=== PATIENT | male | born 1970 | race Caucasian/White ===

== ENCOUNTER 2018-03-04 13:24 | Observation (INO) | payer MEDICAID, MEDICARE ==
[2018-03-04] MEDS ORDERED: NITROGLYCERIN 2% OINTMENT 1 GM PACKET TP ONE (14:15)
[2018-03-04 14:43] LABS: ABSOLUTE BASOPHILS # (AUTO) 0.1 10^3/uL (0.0-0.2); ABSOLUTE EOSINOPHILS # (AUTO) 0.3 10^3/uL (0.0-0.6); ABSOLUTE LYMPHOCYTES (AUTO) 2.6 10^3/uL (0.5-4.7); ABSOLUTE NEUT (AUTO) 6.5 10^3/uL (1.7-8.2); BASOPHILS % (AUTO) 0.8 % (0-2); EOSINOPHILS % (AUTO) 3.3 % (0-6); HEMATOCRIT 44.1 % (37.9-51.0); HEMOGLOBIN 15.1 g/dL (13.5-17.0); LYMPHOCYTES % (AUTO) 24.9 % (13-45); MEAN CORPUSCULAR HEMOGLOBIN 32.2 pg (27.0-33.4); MEAN CORPUSCULAR HGB CONC 34.3 g/dL (32.0-36.0); MEAN CORPUSCULAR VOLUME 94 fl (80-97); MONOCYTES % (AUTO) 9.2 % (3-13); PLATELET COUNT 275 10^3/uL (150-450); RED CELL DISTRIBUTION WIDTH 13.8 % (11.5-14.0); SEGMENTED NEUTROPHILS % (AUTO) 61.8 % (42-78); TOTAL CELLS COUNTED % (AUTO) 100 %; WHITE BLOOD COUNT 10.5 10^3/uL (4.0-10.5)
--- NOTE | 2018-03-04 14:48 | RADIOLOGY REPORT (SQ) ---
EXAM DESCRIPTION: CHEST SINGLE VIEW COMPLETED DATE/TIME: 03/04/2018 2:33 pm REASON FOR STUDY: chest pain COMPARISON: None. EXAM PARAMETERS: NUMBER OF VIEWS: One view. TECHNIQUE: Single frontal radiographic view of the chest acquired. RADIATION DOSE: NA LIMITATIONS: None. FINDINGS: LUNGS AND PLEURA: No opacities, masses or pneumothorax. No pleural effusion. MEDIASTINUM AND HILAR STRUCTURES: No masses. Contour normal. HEART AND VASCULAR STRUCTURES: Heart normal in size. Normal vasculature. BONES: No acute findings. HARDWARE: None in the chest. OTHER: No other significant finding. IMPRESSION: NO ACUTE RADIOGRAPHIC FINDING IN THE CHEST. TECHNICAL DOCUMENTATION: JOB ID: [id number] [employer]- All Rights Reserved Reading location - IP/workstation name: [email or web address]
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
[2018-03-04 16:39] LABS: ALANINE AMINOTRANSFERASE 37 U/L (21-72); ALBUMIN 3.7 g/dL (3.5-5.0); ALKALINE PHOSPHATASE 79 U/L (38-126); ANION GAP 12 (5-19); ASPARTATE AMINO TRANSFERASE 19 U/L (17-59); BILIRUBIN,DIRECT 0.2 mg/dL (0.0-0.4); BILIRUBIN,TOTAL 0.5 mg/dL (0.2-1.3); BLOOD UREA NITROGEN 15 mg/dL (7-20); CARBON DIOXIDE 25 mmol/L (22-30); CHLORIDE 105 mmol/L (98-107); GLUCOSE 106 mg/dL (75-110); POTASSIUM 3.8 mmol/L (3.6-5.0); SODIUM 141.6 mmol/L (137-145); TOTAL PROTEIN 6.4 g/dL (6.3-8.2)
[2018-03-04] MEDS ORDERED: ACETAMINOPHEN 325 MG TABLET PO PRN (18:36)
--- NOTE | 2018-03-04 18:44 | PDOC H&P ---
History of Present Illness Admission Date/PCP: 03/04/18 17:38 Patient complains of: Chest Pain History of Present Illness: JOYCE LAURA is a 47 year old male Patient presents to the emergency room with complaints of chest pain. Please note patient was very rude and uncooperative and the extent of my interview with him was limited. Review of chart states that he has a history of coronary artery disease and 9 prior stents with the last one being one year ago. Is currently chest pain-free Past Medical History Cardiac Medical History: Reports: Myocardial Infarction, Hypertension Social History Information Source: [facility] Records Smoking Status: Never Smoker - Advance Directive Resuscitation Status: Full Code Family History Family History: Reviewed & Not Pertinent Parental Family History Reviewed: No Children Family History Reviewed: No Sibling(s) Family History Reviewed.: No Medication/Allergy Home Medications: Aspirin [Aspirin EC] 81 mg PO DAILY 03/04/18 Clopidogrel Bisulfate [Plavix 75 mg Tablet] 75 mg PO DAILY 03/04/18 Isosorbide Mononitrate [Isosorbide Mononitrate ER] 30 mg PO DAILY 03/04/18 Lisinopril [Prinivil] 20 mg PO DAILY 03/04/18 Metoprolol Tartrate [Lopressor 25 mg Tablet] 25 mg PO DAILY 03/04/18 Multivit-Mins/Iron/Folic/Lycop [Centrum Men's Tablet] 1 each PO DAILY 03/04/18 Simvastatin [Zocor 20 mg Tablet] 20 mg PO QHS 03/04/18 Allergies/Adverse Reactions: No Known Allergies Allergy (Unverified 03/04/18 18:17) Review of Systems ROS unobtainable: Other - Limited due to patient being very uncooperative and rude Physical Exam Vital Signs: Temp Pulse Resp BP Pulse Ox 98.9 F 23 H 140/89 H 98 03/04/18 13:47 03/04/18 17:31 03/04/18 17:31 03/04/18 17:31 General appearance: PRESENT: no acute distress, well-developed, well-nourished Head exam: PRESENT: atraumatic, normocephalic Eye exam: PRESENT: conjunctiva pink, EOMI, PERRLA. ABSENT: scleral icterus Ear exam: PRESENT: normal external ear exam Mouth exam: PRESENT: moist, tongue midline Neck exam: ABSENT: carotid bruit, JVD, lymphadenopathy, thyromegaly Respiratory exam: PRESENT: clear to auscultation vincenzo. ABSENT: rales, rhonchi, wheezes Cardiovascular exam: PRESENT: RRR. ABSENT: diastolic murmur, rubs, systolic murmur Pulses: PRESENT: normal dorsalis pedis pul Vascular exam: PRESENT: normal capillary refill GI/Abdominal exam: PRESENT: normal bowel sounds, soft. ABSENT: distended, guarding, mass, organolmegaly, rebound, tenderness Rectal exam: PRESENT: deferred Extremities exam: PRESENT: full ROM. ABSENT: calf tenderness, clubbing, pedal edema Neurological exam: PRESENT: alert, awake, oriented to person, oriented to place , oriented to time, oriented to situation, CN II-XII grossly intact. ABSENT: motor sensory deficit Psychiatric exam: PRESENT: appropriate affect, normal mood. ABSENT: homicidal ideation, suicidal ideation Skin exam: PRESENT: dry, intact, warm. ABSENT: cyanosis, rash Results Laboratory Results: 03/04/18 13:35 03/04/18 15:52 MCV 94 fl (80-97) 03/04/18 13:35 MCH 32.2 pg (27.0-33.4) 03/04/18 13:35 MCHC 34.3 g/dL (32.0-36.0) 03/04/18 13:35 RDW 13.8 % (11.5-14.0) 03/04/18 13:35 Seg Neutrophils % 61.8 % (42-78) 03/04/18 13:35 Lymphocytes % 24.9 % (13-45) 03/04/18 13:35 Monocytes % 9.2 % (3-13) 03/04/18 13:35 Eosinophils % 3.3 % (0-6) 03/04/18 13:35 Basophils % 0.8 % (0-2) 03/04/18 13:35 Absolute Neutrophils 6.5 10^3/uL (1.7-8.2) 03/04/18 13:35 Absolute Lymphocytes 2.6 10^3/uL (0.5-4.7) 03/04/18 13:35 Absolute Monocytes 1.0 10^3/uL (0.1-1.4) 03/04/18 13:35 Absolute Eosinophils 0.3 10^3/uL (0.0-0.6) 03/04/18 13:35 Absolute Basophils 0.1 10^3/uL (0.0-0.2) 03/04/18 13:35 Chloride 105 mmol/L (98-107) 03/04/18 15:52 Carbon Dioxide 25 mmol/L (22-30) 03/04/18 15:52 Anion Gap 12 (5-19) 03/04/18 15:52 Est GFR ( Amer) > 60 (>60) 03/04/18 15:52 Est GFR (Non-Af Amer) > 60 (>60) 03/04/18 15:52 Glucose 106 mg/dL (75-110) 03/04/18 15:52 Calcium 9.0 mg/dL (8.4-10.2) 03/04/18 15:52 Total Bilirubin 0.5 mg/dL (0.2-1.3) 03/04/18 15:52 AST 19 U/L (17-59) 03/04/18 15:52 ALT 37 U/L (21-72) 03/04/18 15:52 Alkaline Phosphatase 79 U/L (38-126) 03/04/18 15:52 Total Protein 6.4 g/dL (6.3-8.2) 03/04/18 15:52 Albumin 3.7 g/dL (3.5-5.0) 03/04/18 15:52 03/04/18 03/04/18 13:35 15:52 Troponin I Cancelled < 0.012 Impressions: Chest X-Ray 03/04/18 14:14 IMPRESSION: NO ACUTE RADIOGRAPHIC FINDING IN THE CHEST. Assessment & Plan - Diagnosis (1) Chest pain Qualifiers: Chest pain type: unspecified Qualified Code(s): R07.9 - Chest pain, unspecified - Time Time Spent: 30 to 50 Minutes Medications reviewed and adjusted accordingly: Yes Anticipated discharge: Home Within: within 24 hours - Inpatient Certification Based on my medical assessment, after consideration of the patient's comorbidities, presenting symptoms, or acuity I expect that the services needed warrant INPATIENT care.: Yes Medical Necessity: Need For Continuous Telemetry Monitoring - Plan Summary Plan Summary: We will schedule for stress test in a.m.
--- NOTE | 2018-03-04 20:31 | EKG REPORT ---
SEVERITY:- ABNORMAL ECG - SINUS RHYTHM PROBABLE INFERIOR INFARCT, AGE INDETERMINATE : Confirmed by: Carlos Talbert MD 04-Mar-2018 20:30:50
[2018-03-04] MEDS ORDERED: MORPHINE SULFATE INJ PF 2 MG/2 ML AMPULE IV PRN (21:38)
[2018-03-04] MEDS ORDERED: NITROGLYCERIN 0.4 MG/TAB 25 TAB/BOTTLE SL PRN (21:42)
[2018-03-04] MEDS: SIMVASTATIN 10 MG TABLET PO SCH (23:00)
[2018-03-04] MEDS: HEPARIN SOD (PORCINE) 5,000 UNIT/ML 1 ML SYRINGE SUBCUT SCH (23:01)
[2018-03-05] MEDS: MORPHINE SULFATE 10 MG/ML INJ IV PRN ×3 (00:25→20:04)
[2018-03-05] MEDS: HEPARIN SOD (PORCINE) 5,000 UNIT/ML 1 ML SYRINGE SUBCUT SCH ×3 (07:20→21:35)
--- NOTE | 2018-03-05 07:34 | EKG REPORT ---
SEVERITY:- ABNORMAL ECG - SINUS RHYTHM PROBABLE INFERIOR INFARCT, AGE INDETERMINATE : Confirmed by: Carlos Talbert MD 05-Mar-2018 07:32:55
[2018-03-05] MEDS ORDERED: (PENDING PHARMACY ID) (Multivit-Mins/Iron/Folic/Lycop [Centrum Men's Tablet] 1 EACH) PO SCH (10:00)
[2018-03-05] MEDS ORDERED: (PENDING PHARMACY ID) (Lisinopril [Prinivil] 20 MG) PO SCH (10:00)
[2018-03-05] MEDS: METOPROLOL TARTRATE 25 MG TABLET PO SCH (10:27)
[2018-03-05] MEDS: LISINOPRIL 10 MG TABLET PO SCH (10:27)
[2018-03-05] MEDS: ISOSORBIDE MONONITRATE 30 MG TAB.ER.24H PO SCH (10:28)
[2018-03-05] MEDS: ASPIRIN 81 MG TABLET, ENT COATED PO SCH (10:28)
[2018-03-05] MEDS: MULTIVITAMIN TABLET PO SCH (10:28)
[2018-03-05] MEDS: CLOPIDOGREL BISULFATE 75 MG TABLET PO SCH (10:28)
[2018-03-05] MEDS: GUAIFENESIN 600 MG TABLET.SA PO SCH (16:50)
--- NOTE | 2018-03-05 19:51 | PDOC PROGRESS REPORT ---
Subjective Progress Note for:: 03/05/18 Subjective:: Patient was admitted for chest pain to rule out ACS. No acute event overnight. Patient continued to report persistent chest pain. However upon entering patient's room, patient was snoring and was noted to be sleeping. When he wakes up he complained of severe chest pain rating it as 8/10 in intensity despite appearing comfortable. Vision was scheduled for a chemical stress test this morning. However go for a chemical stress test and said that he felt horrible last time he had a chemical stress test. He did say he is able to area on and tolerate jogging and would prefer a treadmill stress test. Reason For Visit: CHEST PAIN Physical Exam Vital Signs: Temp Pulse Resp BP Pulse Ox 98.6 F 72 16 106/64 96 03/05/18 15:08 03/05/18 15:08 03/05/18 15:08 03/05/18 15:08 03/05/18 15:08 Intake & Output 03/04/18 03/05/18 03/06/18 06:59 06:59 06:59 Intake Total 680 Balance 680 Weight 203 lb 0.732 oz General appearance: PRESENT: no acute distress, well-developed, well-nourished Head exam: PRESENT: atraumatic, normocephalic Eye exam: PRESENT: conjunctiva pink, EOMI, PERRLA. ABSENT: scleral icterus Mouth exam: PRESENT: moist, tongue midline Respiratory exam: PRESENT: clear to auscultation vincenzo. ABSENT: rales, rhonchi, wheezes Cardiovascular exam: PRESENT: RRR. ABSENT: diastolic murmur, rubs, systolic murmur Vascular exam: PRESENT: normal capillary refill GI/Abdominal exam: PRESENT: normal bowel sounds, soft. ABSENT: distended, guarding, mass, organolmegaly, rebound, tenderness Extremities exam: PRESENT: full ROM. ABSENT: calf tenderness, clubbing, pedal edema Musculoskeletal exam: PRESENT: ambulatory Results Laboratory Results: 03/04/18 03/05/18 21:15 04:12 Troponin I < 0.012 < 0.012 Impressions: Chest X-Ray 03/04/18 14:14 IMPRESSION: NO ACUTE RADIOGRAPHIC FINDING IN THE CHEST. Assessment & Plan - Diagnosis (1) Chest pain Qualifiers: Chest pain type: unspecified Qualified Code(s): R07.9 - Chest pain, unspecified Is this a current diagnosis for this admission?: Yes Plan: EKGs and troponins have been unremarkable. Cardiology was consulted yesterday on admission. Patient will be rescheduled instead for treadmill stress test. - Time Time Spent with patient: 15-24 minutes
[2018-03-05] MEDS: SIMVASTATIN 10 MG TABLET PO SCH (21:33)
[2018-03-06] MEDS: HEPARIN SOD (PORCINE) 5,000 UNIT/ML 1 ML SYRINGE SUBCUT SCH ×3 (05:24→22:42)
[2018-03-06] MEDS ORDERED: VERAPAMIL HCL 5 MG, LIDOCAINE HCL/PF 4 ML, NORMAL SALINE 12 ML, NITROGLYCERIN/D5W 0.4 M... IV PRN ×5 (10:32)
[2018-03-06] MEDS: ISOSORBIDE MONONITRATE 30 MG TAB.ER.24H PO SCH (10:38)
[2018-03-06] MEDS: GUAIFENESIN 600 MG TABLET.SA PO SCH (10:38)
[2018-03-06] MEDS: LISINOPRIL 10 MG TABLET PO SCH (10:38)
[2018-03-06] MEDS: MULTIVITAMIN TABLET PO SCH (10:39)
[2018-03-06] MEDS: CLOPIDOGREL BISULFATE 75 MG TABLET PO SCH (10:58)
[2018-03-06] MEDS: METOPROLOL TARTRATE 25 MG TABLET PO SCH (10:58)
[2018-03-06] MEDS: ASPIRIN 81 MG TABLET, ENT COATED PO SCH (10:58)
[2018-03-06] MEDS ORDERED: LIDOCAINE 1% INJ-PF (10 MG/ML) 30 ML SDV ONE (11:21)
[2018-03-06] MEDS ORDERED: HEPARIN SODIUM,PORCINE/NS/PF 2,000 UNIT/1,000 ML RTUINJ IV ONE (11:21)
[2018-03-06] MEDS ORDERED: DIAZEPAM 5 MG TABLET PO PRN (12:08)
[2018-03-06] MEDS ORDERED: DIPHENHYDRAMINE HCL 50 MG CAPSULE PO PRN (12:09)
[2018-03-06] MEDS ORDERED: MIDAZOLAM 2 MG/2 ML INJ ONE (12:21)
[2018-03-06] MEDS ORDERED: FENTANYL CITRATE INJ/PF 100 MCG/2 ML AMPUL ONE (12:21)
[2018-03-06] MEDS ORDERED: HEPARIN SOD (PORCINE) 5,000 UNIT/ML 1 ML SYRINGE ONE (12:21)
--- NOTE | 2018-03-06 13:15 | EKG REPORT ---
SEVERITY:- ABNORMAL ECG - SINUS RHYTHM PROBABLE INFERIOR INFARCT, AGE INDETERMINATE : Confirmed by: Carlos Talbert MD 06-Mar-2018 13:14:31
--- NOTE | 2018-03-06 14:34 | Operative Report ---
Operative Report DATE OF SURGERY: 03/06/18 PREOPERATIVE DIAGNOSIS: Unstable angina in a patient with coronary artery disease POSTOPERATIVE DIAGNOSIS: Same OPERATION: Left heart catheterization with coronary angiography and left ventriculography SURGEON: KRISTEL PALOMARES ANESTHESIA: Moderate Sedation TISSUE REMOVED OR ALTERED: none COMPLICATIONS: No apparent complications ESTIMATED BLOOD LOSS: None PROCEDURE: Diagnostic cardiac catheterization report Indication for procedure: 47-year-old gentleman with known coronary artery disease with previous PCI presenting to the hospital with unstable angina pectoris. Cardiac biomarkers are unremarkable for any myocardial necrosis. Further workup unremarkable for any evidence of heart failure. EKG is unremarkable for any ischemic change or acute injury. The patient continues to have angina pectoris reminiscent of his previous symptoms at the time of his PCI. He refuses stress test at this time, so he is referred for coronary angiography for further elucidation of his coronary anatomy. Procedures performed: 1. Left heart catheterization. 2. Selective coronary arteriography. 3. Left ventriculography. Journeyman Carpenter: Kristel Palomares DO Contrast utilized: 120 mL of Optiray 320 Procedure in brief: After informed consent was obtained, the patient was brought to the catheterization lab in stable condition. Bilateral groins and the right wrist were prepped and draped in sterile fashion. The patient was given IV moderate conscious sedation by the cardiac catheterization lab nurse with Versed and fentanyl which was supervised by the rug shampooer. The following parameters were monitored: Oxygen saturation, heart rate, blood pressure, and response to care. Total physician intra- service time was 38 minutes. After local infiltration of the right wrist with 2% lidocaine, the right radial artery was punctured with a micropuncture needle under direct ultrasound guidance and a 6 [place] [employer] hydrophilic sheath was inserted into the right radial artery using modified seldinger technique and a micropuncture kit. The sheath was then flushed with a spasmolytic cocktail of nitroglycerin, verapamil , and lidocaine. The patient was given 4500 units of IV heparin. Next, left heart catheterization was performed using a 6 [place] pigtail diagnostic catheter to cross the aortic valve in a retrograde fashion. Left ventricular pressure was measured. A left ventriculogram was then performed in the ESCUDERO projection. The catheter was then flushed, and the catheter was positioned retrograde through the aortic valve and pressure measured in the aortic root. Next, selective coronary arteriography was performed using a 6 [place] catheter to seat in the ostium the right coronary artery. Unfortunately, the catheter did not seat coaxially. It was then used to seat in the ostium of the left main coronary artery. Multiple injections were performed in orthogonal views of the catheter was removed from the body without difficulty. It was exchanged for a 6 [place] JR4 diagnostic catheter which was used to see the ostium of the right coronary artery. The catheter was removed from the body without difficulty. Findings: Left heart hemodynamics LV 97/0, LVEDP 8 millimeters mercury Ao 95/61, mean 78 mmHg Coronary arteriography Left main coronary artery: The left main coronary artery is angiographically normal giving rise to the LAD and left circumflex arteries. Left anterior descending artery: The left anterior descending artery courses of the anterior interventricular septum and crosses the cardiac apex. There are 2 small diagonal branch arteries which are approximately 1.5 mm in diameter. The proximal LAD has minimal regularity. The mid LAD has an eccentric 40-50% stenosis. The remainder of the LAD has minimal regularity. Left circumflex artery: The left circumflex artery has minimal regularity throughout. There is one major first diagonal branch artery which has an eccentric 50-60% ostial stenosis. Right coronary artery: The right coronary artery is the dominant vessel giving rise the right posterior descending artery. The right coronary artery has minimal regularity proximally. There is a stent in the midportion of the artery which has minimal in-stent restenosis. There is also stent in the distal portion of the artery which extends into much of the right posterior descending artery. This stented region is widely patent. There is a small posterolateral artery which has no significant disease. Left ventriculography: In the ESCUDERO projection, the LV is of normal size. There is normal LV systolic function with no regional wall motion abnormality. There is no mitral regurgitation. The right radial artery sheath was removed and hemostasis achieved with the TR band. The patient tolerated the procedure well and there were no apparent complications at the end of the case. Impression: 1. Normal left main coronary artery. 2. 40-50% mid LAD eccentric stenosis of unclear physiologic significance at this time. 3. 50-60% ostial first obtuse marginal branch artery stenosis of unclear physiologic significance at this time. 4. Minimal regularity left circumflex artery. 5. Previous stents in the mid and distal right coronary artery extending into the right posterior descending artery with no significant restenosis. 6. No evidence of aortic stenosis. 7. Normal LV systolic function with no regional wall motion abnormality and normal left ventricular end-diastolic pressure. Plan: 1. We will continue to further optimize the patient's medical regimen to help his discomfort. 2. Further ischemic evaluation may be conducted with a treadmill cardiac stress test to assess the significance of the obtuse marginal branch lesion and the LAD lesions or the patient may transferred to a higher level center where FFR may be performed for the LAD and the obtuse marginal branch artery. 3. We will discuss the results with the patient's primary lawn care specialist. I appreciate the opportunity to help participate in this patient's cardiovascular care. If you should have any questions for me regarding this patient's cardiac catheterization, please do not hesitate to contact me at the [facility].
--- NOTE | 2018-03-06 14:47 | PDOC PROGRESS REPORT ---
Subjective Progress Note for:: 03/06/18 Subjective:: Patient was admitted for chest pain to rule out ACS. No acute event overnight. Continues to complain of occasional chest pain. Patient is going for a cath soon. Patient continues to be rude to staff and provider. Reason For Visit: CHEST PAIN Physical Exam Vital Signs: Temp Pulse Resp BP Pulse Ox 98.2 F 82 22 H 109/78 97 03/06/18 14:00 03/06/18 14:15 03/06/18 14:15 03/06/18 14:15 03/06/18 14:15 Intake & Output 03/05/18 03/06/18 03/07/18 06:59 06:59 06:59 Intake Total 1020 Balance 1020 Weight 203 lb 0.732 oz 200 lb 2.876 oz General appearance: PRESENT: no acute distress, well-developed, well-nourished Head exam: PRESENT: atraumatic, normocephalic Eye exam: PRESENT: conjunctiva pink, EOMI, PERRLA. ABSENT: scleral icterus Ear exam: PRESENT: normal external ear exam Neck exam: ABSENT: carotid bruit, JVD, lymphadenopathy, thyromegaly Respiratory exam: PRESENT: clear to auscultation vincenzo. ABSENT: rales, rhonchi, wheezes Cardiovascular exam: PRESENT: RRR. ABSENT: diastolic murmur, rubs, systolic murmur GI/Abdominal exam: PRESENT: normal bowel sounds, soft. ABSENT: distended, guarding, mass, organolmegaly, rebound, tenderness Rectal exam: PRESENT: deferred Neurological exam: PRESENT: alert, awake, oriented to person, oriented to place , oriented to time, oriented to situation, CN II-XII grossly intact. ABSENT: motor sensory deficit Results Laboratory Results: 03/04/18 03/05/18 21:15 04:12 Troponin I < 0.012 < 0.012 Impressions: Chest X-Ray 03/04/18 14:14 IMPRESSION: NO ACUTE RADIOGRAPHIC FINDING IN THE CHEST. Assessment & Plan - Diagnosis (1) Chest pain Qualifiers: Chest pain type: unspecified Qualified Code(s): R07.9 - Chest pain, unspecified Is this a current diagnosis for this admission?: Yes Plan: EKGs and troponins have been unremarkable. Awaiting cath result for further cardio recommendations. - Time Time Spent with patient: 15-24 minutes
[2018-03-06] MEDS ORDERED: GUAIFENESIN 600 MG TABLET.SA PO ONE ×3 (15:00→23:30)
[2018-03-06] MEDS: SIMVASTATIN 10 MG TABLET PO SCH (22:43)
[2018-03-06] MEDS ORDERED: FLUTICASONE NASAL SPRAY 50 MCG/SPRY 120 SPRAY/16 GM NASL PRN (22:44)
[2018-03-06] MEDS ORDERED: NICOTINE 14 MG/24 HR PATCH.TD24 TD ONE (22:45)
[2018-03-06] MEDS: RANOLAZINE 500 MG TAB.SR.12H PO SCH (22:46)
[2018-03-06] MEDS: MORPHINE SULFATE 10 MG/ML INJ IV PRN (23:16)
[2018-03-07] MEDS ORDERED: FLUTICASONE NASAL SPRAY 50 MCG/SPRY 120 SPRAY/16 GM ONE (05:54)
[2018-03-07] MEDS: HEPARIN SOD (PORCINE) 5,000 UNIT/ML 1 ML SYRINGE SUBCUT SCH (06:02)
[2018-03-07] MEDS: LISINOPRIL 10 MG TABLET PO SCH (09:40)
[2018-03-07] MEDS: MULTIVITAMIN TABLET PO SCH (09:41)
[2018-03-07] MEDS: ISOSORBIDE MONONITRATE 30 MG TAB.ER.24H PO SCH (09:41)
[2018-03-07] MEDS: CLOPIDOGREL BISULFATE 75 MG TABLET PO SCH (09:46)
[2018-03-07] MEDS: METOPROLOL TARTRATE 25 MG TABLET PO SCH (09:46)
[2018-03-07] MEDS: ASPIRIN 81 MG TABLET, ENT COATED PO SCH (09:46)
[2018-03-07] MEDS: RANOLAZINE 500 MG TAB.SR.12H PO SCH (09:49)
[2018-03-07 10:43] VITALS: BP 113/73
[2018-03-07] MEDS ORDERED: GUAIFENESIN 600 MG TABLET.SA PO ONE (11:00)
--- NOTE | 2018-03-07 14:11 | CONSULTATION REPORT E ---
Consultation Report NAME: JOYCE LAURA : 1970 AGE: 47Y DATE: 03/06/2018 531 A TO: RICK HOLDER M.D. FROM: Rosalind HOPPER, Requesting Physician NOTE: The patient briefly seen on 03/05/2018 to make sure that the patient, who had refused IV Lexiscan and Cardiolite stress test scheduled on the , since he wanted to do an exercise treadmill stress Cardiolite, so I made sure that the patient could walk, and he said he has done that before, and he seemed to be in good shape, but this morning when he was ready for a stress test, the patient complained of chest pain and hence, stress test was canceled. In view of the patient's medical history which is given below, the patient was recommended to have a cardiac catheterization since the patient was having intermittent chest pains, which he claims is reminiscent of the chest symptoms/pain that he had when he had the MO and stent placements. HISTORY OF PRESENT ILLNESS: The patient is a 47-year-old male who is very noncompliant and does not seem to like to take any advice from physicians, states that he started having chest pain on the day before admission, which is intermittent and dull in front of the left front of the chest and increased with exertion. He states it was reminiscent of his MO in the past, after which he had stents. He states that he had 6 stents placed. He denies any shortness of breath, PND, orthopnea, palpitations, dizziness, or syncope. PAST MEDICAL HISTORY: Positive for a history of hypertension, history of hyperlipidemia, history of coronary artery disease, history of MO with a history of 6 stents in the past, but the patient states the last catheterization was about a year ago, at which time he states a stent was placed, but he does not have a stent card and does not know the details. He denies any symptoms of congestive heart failure. There are no palpitations. There is no PND, orthopnea, or leg edema. It is not clear if the patient is compliant with his medications due to financial constraints causing him to not be able to buy his medications. PAST SURGICAL HISTORY: Positive for cardiac catheterization and stent placement. FAMILY HISTORY: Positive for coronary artery disease. ALLERGIES: The patient has no known allergies. SOCIAL HISTORY: The patient is a smoker. There is no history of EtOH abuse. THE PATIENT IS A FULL CODE. 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 MEDICATIONS: 1. Tylenol 650 mg p.o. q. 4 hours p.r.n. 2. Aspirin 81 mg p.o. daily. 3. He is on Plavix 75 mg p.o. daily. 4. He is on Flonase 1 spray nasally b.i.d. p.r.n. 5. He is on Mucinex 600 mg p.o. x1. 6. He is also on Mucinex 600 mg p.o. at bedtime. 7. He is on isosorbide mononitrate 30 mg p.o. daily. 8. He is on lisinopril 20 mg p.o. daily. 9. He is on metoprolol tartrate 25 mg p.o. daily. 10. He is on morphine sulfate 2 mg IV q. 2 hours p.r.n. 11. He is on multivitamin 1 tablet p.o. daily. 12. He is on Nicoderm patch 14 mg for 24 hours daily to chest all. 13. He is on nitroglycerin 1 tablet sublingual p.r.n. 14. He is on Zocor 20 mg p.o. at bedtime. REVIEW OF SYSTEMS: CONSTITUTIONAL: Denies any fever, chills, or rigors. HEAD: Denies any headache or dizziness. EYES: No history of amblyopia or diplopia. No history of amaurosis fugax. EARS: No history of hearing loss. No history of tinnitus. No recurrent ear infections. NOSE: History of nasal allergies, uses Flonase p.r.n. No history of nosebleeds. No history of hay fever. No history of nasal polyps. MOUTH: No altered taste sensation. No ulcers in the mouth. No bleeding from the gums. THROAT: There is no odynophagia or dysphagia. No recurrent sore throat. SKIN: No pruritus. No yellowish discoloration of the skin. No psoriasis or eczema. NECK: No symptoms of C-spine arthritis. No swelling in the neck. LUNGS: No history of asthma or COPD. Denies any cough or sputum production. No history of sleep apnea. No history of pulmonary embolism. No history of symptoms of upper or lower respiratory tract infection. No pleuritic chest pain. No hemoptysis. CARDIAC: History of hypertension. History of CAD. History of MO. History of multiple stents. Recent symptoms of chest pain, which is intermittent. Unable to do a stress test and hence, the patient was recommended to have a cardiac catheterization; see below. No history of PND, orthopnea, leg edema, congestive heart failure, or cardiac arrhythmia. No history of syncope. MUSCULOSKELETAL: Denies arthritis or collagen vascular disease. GASTROINTESTINAL: No history of GERD. No history of peptic ulcer disease. No history of hepatitis. No history of jaundice. No history of fatty food intolerance. Appetite is fair. No altered bowel movements. No history of GI bleed. ENDOCRINE: No history of diabetes mellitus. No history of thyroid disease. No history of polydipsia or polyuria. No history of heat or cold intolerance. METABOLIC: No history of obesity. History of hyperlipidemia present. No history of gout. CENTRAL NERVOUS SYSTEM: No history of TIA or CVA. No history of headaches, migraines, or seizures. RENAL: No history of chronic kidney disease. No history of hematuria, pyuria, or dysuria. No symptoms of UTI. No history of enlarged prostate symptoms. PSYCHIATRIC: The patient states that he is under a lot of stress, although he does not take any medication for that. He is very anxious and that makes him a little ill-tempered at times. There is no depression. There is no suicidal or homicidal ideation. HEMATOLOGICAL: No history of bleeding diathesis. No history of clotting disorders. VASCULAR: No history of calf or buttock claudication. No history of DVT. PHYSICAL EXAMINATION: GENERAL: On examination, the patient is mildly obese, in no acute distress. He is well groomed. VITAL SIGNS: His temperature is 99.2 degrees Fahrenheit. Pulse is 75 beats per minute. Blood pressure is 112/73. Respirations are 20 per minute. O2 sats are 97% on room air. HEAD: Atraumatic, normocephalic. EYES: Pupils are equal, round and regular, reactive to light and accommodation. Extraocular movements are normal. There is no conjunctival pallor. There is no scleral icterus. EARS: Tympanic membranes are intact. External auditory canals are clear. NOSE: There is no deviated nasal septum. There is no inflammation of the nasal mucous membranes. MOUTH: Mucous membranes of the mouth are moist. Tongue is moist. There are no ulcers. There is no bleeding from the gums. THROAT: There is no redness of the oropharynx. There are no exudates. SKIN: There are no skin rashes. There is no petechiae or ecchymosis. There are no skin lesions. NECK: Supple. There is no JVD. Carotids are equal. There is no bruit. There is no lymphadenopathy. There is no axillary muscles of respiration use. There is no goiter. Trachea is central. LUNGS: Clear to auscultation and percussion. There is no chest wall tenderness. HEART: S1 and S2 are heard. There is no S3 gallop. There is no S4 gallop. There is a systolic murmur in the left sternal border in the apex without radiation. There is no rub. ABDOMEN: Soft, nontender. There is no hepatosplenomegaly. Bowel sounds are well heard. There are no tender areas or masses. EXTREMITIES: Femorals are well felt. Leg pulses well felt. There is no pedal edema. There is no DVT or cellulitis. There is no cyanosis or clubbing. Capillary refill is normal. There is no calf tenderness. CENTRAL NERVOUS SYSTEM: The patient is conscious, awake, alert, oriented x3 with no focal deficit. PSYCHIATRIC: The patient's judgment and insight are intact. His affect is normal. LABORATORY DATA: The patient's white count is 10,500. Hemoglobin is 15.1. Hematocrit is 44.1. Platelet count is 275,000. The patient's sodium is 141.6, potassium 3.8. Chloride is 105. CO2 is 25. The patient's BUN is 15, creatinine 0.65. GFR is greater than 60. His glucose is 106. His calcium is 9. His liver function tests are normal. His cardiac enzymes have been negative x3. His albumin is 3.7. Total protein is 6.4. His X-RAY STUDIES: His chest x-ray is negative. His EKG done on the shows sinus rhythm, cannot exclude old inferior wall MO. No acute changes. The patient's EKG done today when he was having chest pain shows no acute changes, cannot exclude old inferior wall MO. IMPRESSION: Chest pain, ongoing. In view of that, there is a definite contraindication with doing a stress test. Hence, would recommend for the patient to go to cardiac catheterization directly. Dr. Quach, the wet process technician from [facility], has also spoken to the patient. The patient was given an option of that or maximizing medical therapy. The patient accepts cardiac catheterization. The risks, benefits, and alternative therapeutic options have been discussed, the risks of , MO, stroke, vascular bleeding, embolic complications, allergy, and renal failure. Conscious sedation risks and complications have all been discussed with the patient. The patient states that he knows all about catheterization since he has had multiple ones. Continue current medications. I will see the patient after cardiac catheterization. ADDENDUM: Note: The patient underwent cardiac catheterization. The right coronary artery stents are patent. They are to the right coronary artery. The left main is normal. It gives rise to the circumflex and LAD. The LAD has a mid 40% irregular narrowing, but does not seem to be any acute thrombus in that lesion. The circumflex obtuse marginal 1 branch has a 50-60% narrowing at its ostium/origin. The LV function is normal with no wall motion abnormality. This has been discussed with the patient by me. Postcatheterization, the patient complained of stabbing pain in the right wrist, but there is good capillary refill and blood flow in his hand. There is no tingling or numbness. Otherwise, his physical exam is unchanged. Impression: Coronary artery disease. At present, no definite need for revascularization. Discussed the options with the patient of maximizing the medical therapy. We will add Ranexa to his therapy. The problem is the patient cannot afford to buy his medication. We will see if we can have the social work lecturer see if we can get him to get the medications. Also, we will see if I have any samples in the office. Also, the other option is to do a stress test Cardiolite to see if any of those lesions need revascularization, or the other option is if the patient continues to have chest pain, send him for a repeat catheterization with FFR measurement of the lesion of the LAD and the circumflex to see if they need revascularization percutaneously. Note: The patient was seen initially at 9:30 in the morning, and a total of 60 minutes spent on this patient. Subsequently, the patient again was seen for about 1/2 hour postcatheterization and findings discussed. Medical decision making is of high complexity. Will follow the patient in the morning. The patient, in view of the pain in the cath site, wants to stay overnight, and hence, this is also I think prudent. Will watch the patient for any complications, which I do not foresee. His medications have been reviewed. Medications adjusted. Thanking you. DICTATING PHYSICIAN: RICK HOLDER M.D. [id number] Y#: [id number] ID: [id number] JOB#: [id number] ACCT: [id number] cc:RICK HOLDER M.D. >
--- NOTE | 2018-03-07 17:40 | PDOC DISCHARGE SUMMARY ---
General - Admit/Disc Date/PCP Admission Date/Primary Care Provider: 03/04/18 17:38 Discharge Date: 03/07/18 - Discharge Diagnosis (1) Chest pain Is this a current diagnosis for this admission?: Yes - Additional Information Resuscitation Status: Full Code Discharge Diet: Cardiac Discharge Activity: Activity As Tolerated Prescriptions: Aspirin [Aspirin EC] 81 mg PO DAILY 30 Days #30 tablet. Clopidogrel Bisulfate [Plavix 75 mg Tablet] 75 mg PO DAILY 30 Days #30 tablet Isosorbide Mononitrate [Isosorbide Mononitrate ER] 30 mg PO DAILY 30 Days #30 tab.er.24h Lisinopril [Prinivil] 20 mg PO DAILY 30 Days #30 tablet Metoprolol Tartrate [Lopressor 25 mg Tablet] 25 mg PO DAILY 30 Days #30 tab Metoprolol Tartrate [Lopressor 25 mg Tablet] 25 mg PO DAILY 30 Days #30 tablet Ranolazine [Ranexa 500 mg Tab.sr] 500 mg PO Q12 30 Days #60 tab.sr.12h Simvastatin [Zocor 20 mg Tablet] 20 mg PO QHS 30 Days #30 tablet Home Medications: Multivit-Mins/Iron/Folic/Lycop [Centrum Men's Tablet] 1 each PO DAILY 03/04/18 Metoprolol Tartrate [Lopressor 25 mg Tablet] 25 mg PO DAILY 30 Days #30 tab Aspirin [Aspirin EC] 81 mg PO DAILY 30 Days #30 tablet. 03/07/18 Clopidogrel Bisulfate [Plavix 75 mg Tablet] 75 mg PO DAILY 30 Days #30 tablet Isosorbide Mononitrate [Isosorbide Mononitrate ER] 30 mg PO DAILY 30 Days #30 tab.er.24h 03/07/18 Lisinopril [Prinivil] 20 mg PO DAILY 30 Days #30 tablet 03/07/18 Metoprolol Tartrate [Lopressor 25 mg Tablet] 25 mg PO DAILY 30 Days #30 tablet 03/07/18 Ranolazine [Ranexa 500 mg Tab.sr] 500 mg PO Q12 30 Days #60 tab.sr.12h 03/07/18 Simvastatin [Zocor 20 mg Tablet] 20 mg PO QHS 30 Days #30 tablet 03/07/18 History of Present Illness History of Present Illness: EPatient presents to the emergency room with complaints of chest pain. Please note patient was very rude and uncooperative and the extent of my interview with him was limited. Review of chart states that he has a history of coronary artery disease and 9 prior stents with the last one being one year ago. Hospital Course Hospital Course: Patient was admitted for chest pain to rule out ACS. Serial troponins and EKGs have been unremarkable. However patient complained of persistent chest pain. He did have history of CAD with coronary stents before. He was initially scheduled for a treadmill stress test but because of his complaint of persistent chest pain, this was canceled. Cardiac catheterization was pursued and this showed normal left main coronary artery, with 40-50% mid LAD stenosis and 50-60% stenosis of the first obtuse marginal branch artery. Previous stents in the mid and distal right coronary artery were patent with no significant restenosis. There is also normal left ventricular systolic function. Ranexa was added by cardiology. Recommendations to optimize medical therapy. Patient will follow up with cardiology on an outpatient basis. Physical Exam Vital Signs: Temp Pulse Resp BP Pulse Ox 98.2 F 77 16 113/73 97 03/07/18 10:39 03/07/18 10:39 03/07/18 10:39 03/07/18 10:39 03/07/18 10:39 Intake & Output 03/06/18 03/07/18 03/08/18 06:59 06:59 06:59 Intake Total 1020 1230 Output Total 500 Balance 1020 730 Weight 200 lb 2.876 oz 203 lb 11.314 oz General appearance: PRESENT: no acute distress, well-developed, well-nourished Eye exam: PRESENT: conjunctiva pink, EOMI, PERRLA. ABSENT: scleral icterus Ear exam: PRESENT: bleeding Neck exam: ABSENT: carotid bruit, JVD, lymphadenopathy, thyromegaly Respiratory exam: PRESENT: clear to auscultation vincenzo. ABSENT: rales, rhonchi, wheezes Cardiovascular exam: PRESENT: RRR. ABSENT: diastolic murmur, rubs, systolic murmur GI/Abdominal exam: PRESENT: normal bowel sounds, soft. ABSENT: distended, guarding, mass, organolmegaly, rebound, tenderness Rectal exam: PRESENT: deferred Extremities exam: PRESENT: full ROM. ABSENT: calf tenderness, clubbing, pedal edema Neurological exam: PRESENT: alert, awake, oriented to person, oriented to place , oriented to time, oriented to situation, CN II-XII grossly intact. ABSENT: motor sensory deficit Psychiatric exam: PRESENT: other - patient is very rude and condescending Results Laboratory Results: 03/04/18 03/05/18 21:15 04:12 Troponin I < 0.012 < 0.012 Impressions: Chest X-Ray 03/04/18 14:14 IMPRESSION: NO ACUTE RADIOGRAPHIC FINDING IN THE CHEST. Qualifiers - * PATIENT BEING DISCHARGED WITH ANY OF THE FOLLOWING DIAGNOSIS: No
[2018-03-07] MEDS ORDERED: GUAIFENESIN 600 MG TABLET.SA PO SCH (22:00)
[2018-03-07] MEDS ORDERED: NICOTINE 14 MG/24 HR PATCH.TD24 TD SCH (22:00)
--- NOTE | 2018-03-08 06:51 | PROGRESS NOTE E ---
Progress Note NAME: JOYCE LAURA : 1970 AGE: 47Y DATE: 03/07/2018 ROOM: 531 SUBJECTIVE: Note that the patient denies any chest pain or discomfort. He still has some discomfort at the site of catheterization in the right wrist. There is no chest pain or discomfort. There is no shortness of breath. There is no PND, orthopnea. There is no leg edema. There is no arrhythmia seen. There is no DVT or cellulitis. There is no pedal edema. There is no syncope or near syncope. OBJECTIVE: GENERAL: The patient is well built, but mildly obese, but well groomed. VITAL SIGNS: He is afebrile with a temperature of 98.2 degrees Fahrenheit. His pulse is 77 beats per minute, blood pressure is 116/90, respirations are 16 per minute, O2 sats are 97% on room air. HEAD: Atraumatic, normocephalic. EYES: Pupils are equal, round, regular, reactive to light and accommodation. Extraocular movements are normal. There is no conjunctival pallor. There is no scleral icterus. ENT: Negative. NECK: Supple. There is no JVD. Carotids are equal. There is no bruit. There is no lymphadenopathy. There is no goiter. Trachea is central. LUNGS: Clear to auscultation and percussion. CARDIOVASCULAR: S1 and S2 are heard. There is no S3 gallop. There is no S4 gallop. There is a systolic murmur in the left sternal border of the apex. There is no rub. ABDOMEN: Soft, nontender. There is no hepatosplenomegaly. Bowel sounds are well heard. EXTREMITIES: Femorals are well left. Leg pulses are well felt. There is no pedal edema. There is no DVT or cellulitis. There is no calf tenderness. Note that the calf site is fine with good circulation in the right hand. There is no hematoma at the site of the right wrist. CENTRAL NERVOUS SYSTEM: The patient is conscious, awake, alert, oriented x3 with no focal deficit. PSYCHIATRIC: The patient's judgment and insight are intact. His affect is normal. IMPRESSION: 1. CORONARY ARTERY DISEASE, LESIONS OF THE LAD AND OM BRANCH, DOES NOT APPEAR TO BE SIGNIFICANT, BUT NEEDS LATER EXERCISE TREADMILL CARDIOLITE TO DEFINE ISCHEMIA PRESENCE OR ABSENCE. 2. HYPERTENSION. 3. HYPERLIPIDEMIA. 4. TOBACCO ABUSE. RECOMMENDATIONS: Will add Ranexa to the patient's medications. Continue aspirin, Plavix, and his Lopressor and current medications. Will follow the patient in the outpatient. The patient has my cell number to call me if he needs me. Medications have been reviewed. Medications added. NOTE: Medical decision making is of moderate to high complexity. Thirty five minutes spent on the patient with more than 50% of the time spent in direct patient care. Will follow the patient as outpatient. Will sign off the case. DICTATING PHYSICIAN: RICK HOLDER M.D. [id number] NGUYEN#: [id number] ID: [id number] JOB#: [id number] ACCT: [id number] cc: >
== END 2018-03-07 13:26 | disposition home or self-care (01) ==
LOC: ER 13:24 → EH 17:38 → 5 20:01 → ICU 03-06 16:01 → 5 03-06 16:32
PROVIDERS: ADMIT Internal Medicine; ATTEND Internal Medicine
PROC: 4A023N7 Measurement of Cardiac Sampling and Pressure, Left Heart, Percutaneous Approach (ICD-10-PCS; principal; 2018-03-06)
PROC: B2011ZZ Plain Radiography of Multiple Coronary Arteries using Low Osmolar Contrast (ICD-10-PCS; 2018-03-06)
PROC: B2051ZZ Plain Radiography of Left Heart using Low Osmolar Contrast (ICD-10-PCS; 2018-03-06)
DX: R07.9 Chest pain, unspecified (principal); I25.110 Atherosclerotic heart disease of native coronary artery with unstable angina pectoris; I25.2 Old myocardial infarction; F17.200 Nicotine dependence, unspecified, uncomplicated; R01.1 Cardiac murmur, unspecified; G89.18 Other acute postprocedural pain; M25.531 Pain in right wrist; Z73.3 Stress, not elsewhere classified; E66.9 Obesity, unspecified; I10 Essential (primary) hypertension; E78.5 Hyperlipidemia, unspecified; F41.9 Anxiety disorder, unspecified; Z68.33 Body mass index [BMI] 33.0-33.9, adult; Z79.82 Long term (current) use of aspirin; Z79.02 Long term (current) use of antithrombotics/antiplatelets; Z79.899 Other long term (current) drug therapy; Z95.5 Presence of coronary angioplasty implant and graft; Z91.19 Patient's noncompliance with other medical treatment and regimen; Z82.49 Family history of ischemic heart disease and other diseases of the circulatory system
CPT/HCPCS: 93005 ×3; 99285; 36415 ×2; 85025; 80053; 84484 ×2; 93458; 76937; 71045; 93010 ×2; G0378 ×5; J3490 ×25; J2250; J1644 ×3; J3010; J2270 ×2

== ENCOUNTER 2018-03-08 03:43 | Emergency (ER) | payer MEDICAID ==
[2018-03-08] MEDS ORDERED: ASPIRIN 81 MG TABLET, CHEWABLE PO ONE (03:49)
[2018-03-08] MEDS ORDERED: IPRATROPIUM/ALBUTEROL 0.5-2.5 MG/3 ML AMPUL NEB ONE (03:58)
--- NOTE | 2018-03-08 04:00 | ER Document Report ---
ED General - General Mode of Arrival: Ambulatory Information source: Patient TRAVEL OUTSIDE OF THE [place] IN LAST 30 DAYS: No <NGUYỄN BRAGA - Last Filed: 03/08/18 04:04> <KEELY REBOLLAR - Last Filed: 03/08/18 06:11> - General Chief Complaint: Chest Pain Stated Complaint: CHEST PAIN Time Seen by Provider: 03/08/18 03:46 Notes: Patient is a 47-year-old male presenting to the emergency department complaining of chest pain onset 1 week ago. Patient was recently seen in this emergency department on 03/04/2018 and admitted where a cardiac catheterization was performed. Patient was discharged yesterday but states his pain was still present and has worsened today. Patient denies any exacerbating factors and describes his chest pain as a squeezing. Patient states that while in the hospital, he developed a cough and admits to telling staff he was going for a walk but taking smoke breaks instead. He denies any fevers. (NGUYỄN BRAGA) - Related Data Allergies/Adverse Reactions: No Known Allergies Allergy (Unverified 03/04/18 18:17) Past Medical History - General Information source: Patient - Social History Smoking Status: Current Every Day Smoker Cigarette use (# per day): Yes Chew tobacco use (# tins/day): No Smoking Education Provided: No Family History: Reviewed & Not Pertinent Patient has suicidal ideation: No Patient has homicidal ideation: No - Past Medical History Cardiac Medical History: Reports: Hx Heart Attack, Hx Hypertension <NGUYỄN BRAGA - Last Filed: 03/08/18 04:04> Review of Systems - Review of Systems Constitutional: No symptoms reported EENT: No symptoms reported Cardiovascular: See HPI, Chest pain Respiratory: See HPI, Cough Gastrointestinal: No symptoms reported Genitourinary: No symptoms reported Male Genitourinary: No symptoms reported Musculoskeletal: No symptoms reported Skin: No symptoms reported Hematologic/Lymphatic: No symptoms reported Neurological/Psychological: No symptoms reported -: Yes All other systems reviewed and negative <NGUYỄN BRAGA - Last Filed: 03/08/18 04:04> Physical Exam - Vital signs Interpretation: Normal - General General appearance: Appears well, Alert - HEENT Head: Normocephalic, Atraumatic Eyes: Normal Pupils: PERRL - Respiratory Respiratory status: No respiratory distress Chest status: Nontender Breath sounds: Wheezing Chest palpation: Normal - Cardiovascular Rhythm: Regular Heart sounds: Normal auscultation Murmur: No - Abdominal Inspection: Normal Distension: No distension Bowel sounds: Normal Tenderness: Nontender Organomegaly: No organomegaly - Back Back: Normal, Nontender - Extremities General upper extremity: Normal inspection, Nontender, Normal color, Normal ROM , Normal temperature General lower extremity: Normal inspection, Nontender, Normal color, Normal ROM , Normal temperature, Normal weight bearing. No: Celestina's sign - Neurological Neuro grossly intact: Yes Cognition: Normal Orientation: AAOx4 [place] Coma Scale Eye Opening: Spontaneous [place] Coma Scale Verbal: Oriented Sania Coma Scale Motor: Obeys Commands [place] Coma Scale Total: 15 Speech: Normal Motor strength normal: LUE, RUE, LLE, RLE Sensory: Normal - Psychological Associated symptoms: Normal affect, Normal mood - Skin Skin Temperature: Warm Skin Moisture: Dry Skin Color: Normal <KEELY REBOLLAR - Last Filed: 03/08/18 06:11> - Vital signs Vitals: Temp Resp 98.6 F 25 H 03/08/18 03:48 03/08/18 03:48 Course <NGUYỄN BRAGA - Last Filed: 03/08/18 04:04> - Laboratory Result Diagrams: 03/08/18 04:03 03/08/18 04:03 - Diagnostic Test Radiology reviewed: Reports reviewed <KEELY REBOLLAR - Last Filed: 03/08/18 06:11> - Re-evaluation Re-evalutation: 03/08/18 06:08 Patient is a 47-year-old male who history of coronary artery disease who was recently seen for cardiac catheterization and no acute lesions were found. Patient was discharged yesterday. He apparently was going out for smoke breaks while admitted to the hospital. Patient is being seen but will not use the nebulizer as he says it hurts his eyes. Patient is difficult and defensive with history. When I ask him if he is feeling better he tells me that he is befuddled. At this point, the patient will be discharged home as his troponin is negative and again had a recent cardiac catheterization. CTA is not showing any evidence for pulmonary embolus. He will be given a prescription for prednisone and an inhaler. He is to follow-up up with his doctor on Sunday. ( KEELY REBOLLAR) - Vital Signs Vital signs: Temp Pulse Resp BP Pulse Ox 98.5 F 20 120/86 H 94 03/08/18 06:01 03/08/18 06:01 03/08/18 06:01 03/08/18 06:01 - Laboratory Laboratory results interpreted by me: 03/08/18 04:03 Glucose 112 H Discharge <GNUYỄN BRAGA - Last Filed: 03/08/18 04:04> <KEELY REBOLLAR - Last Filed: 03/08/18 06:11> - Discharge Clinical Impression: Bronchospasm Chest pain Qualifiers: Chest pain type: unspecified Qualified Code(s): R07.9 - Chest pain, unspecified Condition: Stable Disposition: HOME, SELF-CARE Instructions: Chest Pain of Unclear Cause ([facility]), Bronchospasm ([facility]) Prescriptions: Albuterol Sulfate [Proair HFA Inhalation Aerosol 8.5 gm MDI] 2 puff IH Q4H PRN # 1 mdi PRN Reason: Prednisone [Deltasone 20 mg Tablet] 3 tab PO DAILY 4 Days tablet Forms: Smoking Cessation Education Scribe Attestation: 03/08/18 06:11 I personally performed the services described in the documentation, reviewed and edited the documentation which was dictated to the scribe in my presence, and it accurately records my words and actions. (KEELY REBOLLAR) Scribe Documentation - Scribe Written by Nazario:: Nazario Sylvester, 03/08/2018 40:03 acting as scribe for :: Hortensia <NGUYỄN BRAGA - Last Filed: 03/08/18 04:04>
[2018-03-08 04:17] LABS: ABSOLUTE BASOPHILS # (AUTO) 0.1 10^3/uL (0.0-0.2); ABSOLUTE EOSINOPHILS # (AUTO) 0.3 10^3/uL (0.0-0.6); ABSOLUTE LYMPHOCYTES (AUTO) 2.7 10^3/uL (0.5-4.7); ABSOLUTE NEUT (AUTO) 5.5 10^3/uL (1.7-8.2); BASOPHILS % (AUTO) 0.9 % (0-2); EOSINOPHILS % (AUTO) 3.5 % (0-6); HEMATOCRIT 43.2 % (37.9-51.0); LYMPHOCYTES % (AUTO) 28.4 % (13-45); MEAN CORPUSCULAR HEMOGLOBIN 32.6 pg (27.0-33.4); MEAN CORPUSCULAR HGB CONC 34.8 g/dL (32.0-36.0); MEAN CORPUSCULAR VOLUME 94 fl (80-97); PLATELET COUNT 268 10^3/uL (150-450); RED BLOOD COUNT 4.61 10^6/uL (4.35-5.55); RED CELL DISTRIBUTION WIDTH 13.7 % (11.5-14.0); SEGMENTED NEUTROPHILS % (AUTO) 57.2 % (42-78); TOTAL CELLS COUNTED % (AUTO) 100 %; WHITE BLOOD COUNT 9.6 10^3/uL (4.0-10.5)
[2018-03-08 04:26] LABS: ALANINE AMINOTRANSFERASE 57 U/L (21-72); ALBUMIN 4.1 g/dL (3.5-5.0); ALKALINE PHOSPHATASE 106 U/L (38-126); ANION GAP 13 (5-19); ASPARTATE AMINO TRANSFERASE 31 U/L (17-59); BILIRUBIN,DIRECT 0.4 mg/dL (0.0-0.4); BILIRUBIN,TOTAL 0.4 mg/dL (0.2-1.3); BLOOD UREA NITROGEN 15 mg/dL (7-20); CALCIUM 9.4 mg/dL (8.4-10.2); CARBON DIOXIDE 25 mmol/L (22-30); CHLORIDE 106 mmol/L (98-107); CREATINE KINASE 97 U/L (55-170); GLUCOSE 112 mg/dL (75-110); POTASSIUM 3.8 mmol/L (3.6-5.0); SODIUM 144.2 mmol/L (137-145); TOTAL PROTEIN 7.2 g/dL (6.3-8.2)
--- NOTE | 2018-03-08 04:28 | RADIOLOGY REPORT (SQ) ---
EXAM DESCRIPTION: XR CHEST 1 VIEW COMPLETED DATE/TME: 03/08/2018 03:49 CLINICAL HISTORY: 47 years Male, CP COMPARISON: 03/04/2018 NUMBER OF VIEWS/TECHNIQUE: 1/AP FINDINGS: Adequate lung volume, clear parenchyma, normal cardiac silhouette, and intact bony thorax. IMPRESSION: No acute cardiopulmonary findings.
[2018-03-08 04:38] LABS: CREATINE KINASE MB 0.79 ng/mL (<4.55); TROPONIN I < 0.012 ng/mL
[2018-03-08 05:07] LABS: APPEARANCE,URINE SLIGHTLY-CLOUDY; BILIRUBIN,URINE NEGATIVE (NEGATIVE); COLOR,URINE YELLOW; GLUCOSE, URINE NEGATIVE (NEGATIVE); KETONES,URINE NEGATIVE (NEGATIVE); LEUKOCYTE ESTERASE,URINE NEGATIVE (NEGATIVE); NITRITE,URINE NEGATIVE (NEGATIVE); PROTEIN,URINE NEGATIVE (NEGATIVE); URINE SPECIFIC GRAVITY 1.019; UROBILINOGEN,URINE NEGATIVE mg/dL (<2.0)
[2018-03-08 05:18] LABS: URINE AMPHETAMINES SCREEN NEGATIVE; URINE BARBITURATES SCREEN NEGATIVE; URINE BENZODIAZEPINES SCREEN UNCONFIRMED POSITIVE; URINE COCAINE SCREEN NEGATIVE; URINE MARIJUANA (THC) SCREEN NEGATIVE; URINE METHADONE SCREEN NEGATIVE; URINE PHENCYCLIDINE SCREEN NEGATIVE
--- NOTE | 2018-03-08 05:32 | RADIOLOGY REPORT (SQ) ---
EXAM DESCRIPTION: CT CHEST ANGIOGRAPHY WITHOUT THEN WITH IV CONTRAST COMPLETED DATE/TME: 03/08/2018 03:57 CLINICAL HISTORY: 47 years Male, evaluate for PE Comparison: XR CHEST 1 VIEW 03/08/2018 03:49;NM IV LEXISCAN CARDIOLITE (REGADENOSON) 09/07/2017 Technique: IV contrast. Coronal and sagittal reformat. 3d reconstruction. This exam was performed according to our departmental dose-optimization program, which includes automated exposure control, adjustment of the mA and/or kV according to patient size and/or use of iterative reconstruction technique.[facility]: Dose Right [facility]: CareDose [facility]: Dose Right [facility]: Teradose 4D [facility]: Global Animationz LIMITATIONS: Quality of pulmonary arteriogram: Nondiagnostic. Findings: There is inadequate evaluation of the pulmonary arterial system. There is no gross evidence of large pulmonary embolus. No right ventricular strain. Clear lungs. Inferior neck, axillae, mediastinum, lungs, airway, lymphatics, heart, vasculature, upper abdomen, and musculoskeleton appear otherwise unremarkable. Impression: 1. Inadequate visualization of the pulmonary arterial system. Consider repeat, alternative, or surveillance interrogation for pulmonary embolus/deep venous thrombosis as clinically warranted. 2. No acute cardiopulmonary findings.
[2018-03-08] MEDS ORDERED: SUCRALFATE 1 GM TABLET PO ONE (05:41)
[2018-03-08] MEDS ORDERED: DICYCLOMINE HCL 20 MG TABLET PO ONE (05:41)
[2018-03-08 06:05] VITALS: BP 120/86
--- NOTE | 2018-03-08 07:18 | EKG REPORT ---
SEVERITY:- BORDERLINE ECG - SINUS RHYTHM CONSIDER INFERIOR INFARCT : Confirmed by: Carlos Talbert MD 08-Mar-2018 07:17:55
== END 2018-03-08 06:16 | disposition home or self-care (01) ==
LOC: ER 03:43
DX: J98.01 Acute bronchospasm (principal); R07.9 Chest pain, unspecified; R05 Cough; F17.210 Nicotine dependence, cigarettes, uncomplicated; I10 Essential (primary) hypertension; I25.2 Old myocardial infarction; Z98.890 Other specified postprocedural states; R06.2 Wheezing; I25.10 Atherosclerotic heart disease of native coronary artery without angina pectoris
CPT/HCPCS: 93005; 94640; 99285; 36415; 82553; 82550; 85025; 80053; 81001; 84484; 80307; 71045; 71275; 93010; J3490 ×2; J7620